=== PATIENT | male | born 1970 | race Caucasian/White ===

== ENCOUNTER 2016-12-29 10:23 | Emergency (ER) | payer OTHER ==
[2016-12-29 11:27] VITALS: BP 132/87
--- NOTE | 2016-12-29 13:30 | UC ---
Complaint Male HPI - HPI Summary HPI Summary: Pt presents with c/o of intermittent hematuria and dysuria. Pt has history of kidney stones and prostatitis and epididymitis - History of Current Complaint Chief Complaint: UCGU Stated Complaint: PERSONAL Time Seen by Provider: 12/29/16 11:27 Hx Obtained From: Patient Onset/Duration: Sudden Onset, Lasting Days Pain Intensity: 0 Pain Scale Used: 0-10 Numeric Location: Penis - with urination Character: Sharp, Burning Aggravating Factor(s): Voiding Associated Signs And Symptoms: Positive: Back Pain - right flank, Hematuria, Dysuria - Allergies/Home Medications Allergies/Adverse Reactions: Allergies Allergy/AdvReac Type Severity Reaction Status Date / Time No Known Allergies Allergy Verified 12/29/16 11:14 PMH/Surg Hx/FS Hx/Imm Hx - Additional Past Medical History Additional PMH: epididymitis, prostatitis, UTI and kidney stones Previously Healthy: No - has PMH related to today's c/o GI/ History Of: Reports: Kidney Stones - Surgical History Surgical History: Yes Surgery Procedure, Year, and Place: VOCAL CORD SURGERY. LEFT INGUNIAL HERNIA REPAIR - Family History Known Family History: Positive: Other - denies FMH for Colon Ca - Social History Alcohol Use: None Substance Use Type: None Smoking Status (MU): Never Smoked Tobacco Review of Systems Constitutional: Negative Skin: Negative Eyes: Negative ENT: Negative Respiratory: Negative Cardiovascular: Negative Gastrointestinal: Negative Genitourinary: Dysuria, Hematuria, Urgency Motor: Negative Neurovascular: Negative Musculoskeletal: Negative Neurological: Negative Psychological: Negative All Other Systems Reviewed And Are Negative: Yes Physical Exam Triage Information Reviewed: Yes Appearance: Well-Appearing Vital Signs: Initial Vital Signs Temp 98.6 F 12/29/16 11:14 Pulse 77 12/29/16 11:14 Resp 18 12/29/16 11:14 BP 132/87 12/29/16 11:14 Pulse Ox 98 12/29/16 11:14 Eye Exam: Normal Neck exam: Normal Respiratory Exam: Normal Cardiovascular Exam: Normal Abdominal Exam: Normal Abdomen Description: Positive: Nontender Musculoskeletal Exam: Normal Neurological Exam: Normal Psychological Exam: Normal Skin Exam: Normal Complaint Male Course/Dx - Differential Dx/Diagnosis Differential Diagnosis/HQI/PQRI: Ureteral Calculi, Urinary Tract Infection Provider Diagnoses: Hematuria. urethritis Discharge - Discharge Plan Condition: Stable Disposition: HOME Prescriptions: Ciprofloxacin TAB* [Cipro 500 MG TAB*] 500 mg PO BID #10 tab Patient Education Materials: Nonspecific Urethritis in Men (ED), Hematuria (ED) Referrals: [facility] [Outside] Pratik Arnold MD [Medical Doctor] - Additional Instructions: Please follow up with your PCP or return to clinic as needed. We have provided a referral to a urologist for you to follow up with regarding your complaints at your visit today. It is recommended that you follow up with a urologist as soon as possible.
== END 2016-12-29 12:20 | disposition home or self-care (01) ==
LOC: UCCORT 10:23
DX: N34.2 Other urethritis (principal); R31.9 Hematuria, unspecified; Z87.442 Personal history of urinary calculi; Z87.440 Personal history of urinary (tract) infections
CPT/HCPCS: 81003; 87086; 99202; G0463